=== PATIENT | male | born 1955 | race Caucasian/White ===

== ENCOUNTER → 2017-10-02 07:53 | Outpatient (CLI) | payer MEDICAID, SELFPAY ==
[2017-10-02 08:13] LABS: Blood Urea Nitrogen 24 mg/dL (7-18); Creatinine,Serum 1.28 mg/dL (0.70-1.30); Estimated Glomerular Filt Rate 57 ml/min (>60); GFR (African American) 69 ML/MIN (>60)
--- NOTE | 2017-10-02 08:13 | MR_ITS ---
MR head/brain wo/w con Ordering Physician: Ambrose Rowe MD Patient Age: 62 years: Male HISTORY: ITS.REASON: sudden hearing loss subtle radiopacity carrying loss of the left air left side hearing loss 3 weeks with running sensation left ear. Pressure in head. TECHNIQUE: Precontrast Multiplanar FLAIR, T1, T2 weighted images along with axial diffusion/ADC imaging performed on 1.5 T. Siemens, MRI. Postcontrast imaging [id number] ProHance T1-weighted images axial & coronal plane performed . Additional thin section images through IACs pre and postcontrast. COMPARISON :None FINDINGS Postcontrast images show no abnormal areas of enhancement. Additional thin sections the IACs demonstrates normal appearance of cranial nerve VII and VIII. No enhancement here. CP angles are clear posterior fossa unremarkable. No enhancing mass lesions elsewhere in brain The posterior fossa appears satisfactory mastoid air cells unremarkable. The visualized paranasal sinuses are clear with only borderline mucosal thickening at ethmoid air cells. Orbits unremarkable. Diffusion images show no acute or recent infarct Sensitive FLAIR and images show some scattered deep white matter high signal foci throughout the cerebral hemispheres bilaterally most likely reflecting small vessel ischemic gliotic foci. There is a small cluster of of small foci just overlying the atrium left lateral ventricle the single 4 mm focus qqarea. A few small high signal foci seen elsewhere. No extra-axial collections. The skull appears intact. The cranial cervical junction and sella appear normal. . Pituitary and sellaUnremarkable today's Survey studies . Ventricles and basal cistern satisfactory . Incidental note mild Developing cervical spondylosis at the upper C-spine which indents the thecal sac at C3/4 >C2/3 ====IMPRESSION: No abnormal areas of enhancement . No mass lesions.. No acute findings No CP angles IACs unremarkable The posterior fossa unremarkable . Mastoid air cells clear. The paranasal sinuses are clear except to note some borderline/mild mucosal thickening throughout the ethmoid air cells Only minor chronic small vessel deep white matter ischemic changes cerebral hemispheres bilaterally noted.
== END ==
PROVIDERS: PCP Otolaryngology; Visit Provider Otolaryngology
DX: H91.22 Sudden idiopathic hearing loss, left ear (principal)
CPT/HCPCS: 36415; 70553; 82565; 84520; A9576